=== PATIENT | male | born 1970 | race Caucasian/White ===

== ENCOUNTER 2017-07-18 13:16 | Day surgery (SDC) | payer OTHER ==
[~2017-07-18 13:16] MED LIST: CHLORHEXIDINE 0.12% 15 ML MOUTHWASH. SWSP; LIDOCAINE 1% PF 2 ML VIAL. ID; MORPHINE SULFATE 2 MG/ML DISP.SYRIN. IV; ONDANSETRON PF 4 MG/2 ML VIAL. IV; PROCHLORPERAZINE 10 MG/2 ML VIAL. IV; ceFAZolin 2GM PREMIX 2 GM/50 ML BAG IV; fentaNYL PF VIAL 100 MCG/2 ML VIAL IV
[2017-07-18] MEDS: CHLORHEXIDINE 0.12% 15 ML MOUTHWASH. SWSP ×2 (13:45)
[2017-07-18] MEDS: GELATIN SPONGE SIZE 100. ×2 (13:56)
[2017-07-18] MEDS: BUPIVACAINE-EPI 0.25%-1:200000 50 ML VIAL. ×2 (13:56)
[2017-07-18] MEDS: IV RINGERS,LACTATED 1000ML 1,000 ML IV ×2 (14:15)
[2017-07-18 14:16] LABS: POC GLUCOSE 109 mg/dL (70-99)
[2017-07-18] MEDS ORDERED: fentaNYL PF VIAL 100 MCG/2 ML VIAL ×4 (16:11→17:47)
[2017-07-18] MEDS ORDERED: ROCURONIUM 50 MG/5 ML VIAL. ×2 (16:11)
[2017-07-18] MEDS ORDERED: DEXAMETHASONE SOD PHOS 20 MG/5 ML VIAL. ×2 (16:11)
[2017-07-18] MEDS ORDERED: PROPOFOL 20 ML IV ×2 (16:11)
[2017-07-18] MEDS ORDERED: LIDOCAINE 2% PF Vial for OR 5 ML VIAL. ×2 (16:11)
[2017-07-18] MEDS ORDERED: MIDAZOLAM HCL/PF 2 MG/2 ML VIAL. ×2 (16:11)
[2017-07-18] MEDS ORDERED: SUCCINYLCHOLINE 200 MG/10 ML VIAL. ×2 (16:14)
[2017-07-18] MEDS ORDERED: GLYCOPYRROLATE 1 MG/5 ML VIAL. ×2 (18:24)
[2017-07-18] MEDS ORDERED: NEOSTIGMINE 10 MG/10 ML VIAL. ×2 (18:24)
[2017-07-18] MEDS ORDERED: SEVOFLURANE 31 TO 60 MINUTES. IH ×2 (18:33)
[2017-07-18 18:55] LABS: POC GLUCOSE 131 mg/dL (70-99)
[2017-07-18] MEDS: oxyCODONE/APAP 7.5/325 1 TAB TABLET PO ×2 (19:40)
== END 2017-07-18 20:06 | disposition home or self-care (01) ==
LOC: SURG 13:16
DX: K02.9 Dental caries, unspecified (principal); E78.00 Pure hypercholesterolemia, unspecified; I10 Essential (primary) hypertension; K21.9 Gastro-esophageal reflux disease without esophagitis; E66.9 Obesity, unspecified; Z68.41 Body mass index [BMI] 40.0-44.9, adult; F41.9 Anxiety disorder, unspecified; F32.9 Major depressive disorder, single episode, unspecified; Z72.0 Tobacco use; Z79.899 Other long term (current) drug therapy; Z86.39 Personal history of other endocrine, nutritional and metabolic disease; Z87.39 Personal history of other diseases of the musculoskeletal system and connective tissue
CPT/HCPCS: 41874; 82962; J0330; J0690; J1100; J2250; J2704; J2710; J3010; J3490